=== PATIENT | male | born 1985 | race African-American/Black ===

== ENCOUNTER 2021-08-22 20:36 | Emergency (ER) | payer OTHER ==
[~2021-08-22] VITALS: Ht 172.7 cm; Wt 100.2 kg
[2021-08-22 21:43] LABS: CREATININE 1.2 mg/dL (0.6-1.3); POTASSIUM 4.1 mmol/L (3.5-5.1)
[2021-08-22 21:44] LABS: HEMATOCRIT 42.8 % (36.7-47.1); MEAN CORPUSCULAR HEMOGLOBIN 23.7 uug (23.8-33.4); MEAN CORPUSCULAR VOLUME 74.4 fL (73.0-96.2); PLATELET COUNT (AUTO) 179 K/uL (152-348)
[2021-08-22 21:49] LABS: ALANINE AMINOTRANSFERASE 43 U/L (16-63); ALKALINE PHOSPHATASE 42 U/L (50-136); ASPARTATE AMINOTRANSFERASE 25 U/L (15-37); BILIRUBIN,DIRECT < 0.1 mg/dL (0.0-0.2); BILIRUBIN,TOTAL 0.2 mg/dL (0.2-1.0); TOTAL PROTEIN, SERUM 7.3 g/dL (6.4-8.2)
[2021-08-22] MEDS ORDERED: LORA-259 PO (22:42)
--- NOTE | 2021-08-22 22:54 | NUR ---
Patient discharged to home in stable condition. Written and verbal after care instructions given. Patient verbalizes understanding of instructions. Stressed follow up or return to ER for worsening s/s.
[2021-08-22 22:55] VITALS: BP 124/77
== END 2021-08-22 22:55 | disposition home or self-care (01) ==
LOC: ER 20:39
DX: R55 Syncope and collapse (principal); G47.00 Insomnia, unspecified
CPT/HCPCS: 36415; 85025; A4663